=== PATIENT | male | born 1970 | race Caucasian/White ===

== ENCOUNTER 2016-04-23 04:34 | Emergency (ER) | payer OTHER ==
[~2016-04-23] VITALS: Ht 170.1 cm; Wt 66.7 kg
[~2016-04-23 04:34] MED LIST: CIPRO500 MG PO; HYDROCODONE BIT1 T11 PO
[2016-04-23] MEDS ORDERED: CLINDAMYCIN HC300 MG PO ×2 (04:55→05:11)
[2016-04-23] MEDS ORDERED: NORCO 5-325 TA1 EACH PO (04:55)
[2016-04-23] MEDS ORDERED: Motrin,Rufen800 MG PO (05:11)
== END 2016-04-23 05:20 | disposition home or self-care (01) ==
LOC: ED 04:34
DX: K02.9 Dental caries, unspecified (principal); K04.01 Reversible pulpitis; Z88.0 Allergy status to penicillin

== ENCOUNTER 2016-04-29 12:57 | Emergency (ER) | payer OTHER ==
[~2016-04-29] VITALS: Ht 340.3 cm; Wt 66.7 kg
[~2016-04-29 12:57] MED LIST changes: +CLINDAMYCIN HC300 MG PO; +Motrin,Rufen800 MG PO; +NORCO 5-325 TA1 EACH PO
== END 2016-04-29 14:12 | disposition home or self-care (01) ==
LOC: ED 12:57
DX: K02.9 Dental caries, unspecified (principal); F17.200 Nicotine dependence, unspecified, uncomplicated; Z88.0 Allergy status to penicillin

== ENCOUNTER 2016-08-08 19:41 | Emergency (ER) | payer OTHER ==
[~2016-08-08] VITALS: Ht 170.1 cm; Wt 63.5 kg
[2016-08-08] MEDS ORDERED: CLINDAMYCIN150 MG PO (19:58)
[2016-08-08] MEDS ORDERED: IBUPROFEN IB200 M1 PO (19:59)
[2016-08-08] MEDS ORDERED: NORCO 5-325 TA1 EACH PO (19:59)
== END 2016-08-09 00:32 | disposition home or self-care (01) ==
LOC: ED 19:41
DX: K91.840 Postprocedural hemorrhage of a digestive system organ or structure following a digestive system procedure (principal); K08.409 Partial loss of teeth, unspecified cause, unspecified class; Z88.0 Allergy status to penicillin; Z79.899 Other long term (current) drug therapy

== ENCOUNTER 2017-12-07 21:04 | Emergency (ER) | payer SELFPAY ==
[~2017-12-07] VITALS: Ht 170.1 cm; Wt 61.2 kg
[~2017-12-07 21:04] MED LIST changes: +CLINDAMYCIN150 MG PO; +IBUPROFEN IB200 M1 PO
== END 2017-12-07 21:25 | disposition home or self-care (01) ==
LOC: ED 21:04
DX: S50.861A Insect bite (nonvenomous) of right forearm, initial encounter (principal); L08.9 Local infection of the skin and subcutaneous tissue, unspecified; Z88.0 Allergy status to penicillin; W57.XXXA Bitten or stung by nonvenomous insect and other nonvenomous arthropods, initial encounter; Y93.89 Activity, other specified; Y92.89 Other specified places as the place of occurrence of the external cause; Y99.8 Other external cause status